=== PATIENT | male | born 1950 | race Caucasian/White ===

== ENCOUNTER → 2021-01-11 | Outpatient (CLI) | payer OTHER | LOC: SJCVC 10:44 | PROVIDERS: ATTEND Internal Medicine | DX: R94.31 Abnormal electrocardiogram [ECG] [EKG] (principal); R00.0 Tachycardia, unspecified; R06.00 Dyspnea, unspecified; E78.00 Pure hypercholesterolemia, unspecified; E78.5 Hyperlipidemia, unspecified; Z87.891 Personal history of nicotine dependence; Z86.19 Personal history of other infectious and parasitic diseases; Z82.49 Family history of ischemic heart disease and other diseases of the circulatory system; Z72.89 Other problems related to lifestyle; Z79.899 Other long term (current) drug therapy ==

== ENCOUNTER → 2021-01-13 | Outpatient (CLI) | payer OTHER | LOC: SJCVCIMAG 09:49 | PROVIDERS: ATTEND Internal Medicine | DX: I35.1 Nonrheumatic aortic (valve) insufficiency (principal); R00.0 Tachycardia, unspecified; A48.1 Legionnaires' disease; R06.00 Dyspnea, unspecified; E78.5 Hyperlipidemia, unspecified; I10 Essential (primary) hypertension; Z87.891 Personal history of nicotine dependence ==

== ENCOUNTER → 2021-01-14 | Outpatient (CLI) | payer OTHER | LOC: LAB 09:48 | PROVIDERS: ATTEND Internal Medicine | DX: Z01.812 Encounter for preprocedural laboratory examination (principal); Z20.822 Contact with and (suspected) exposure to COVID-19 ==

== ENCOUNTER → 2021-01-24 | Outpatient (CLI) | payer OTHER ==
[~2021-01-24] VITALS: Ht 170.2 cm; Wt 88.9 kg
[~2021-01-24] MED LIST: CENTRUM CHEWAB1 EAC2 PO; FLOMAX0.4 MG PO; ROSUVASTATIN CA20 MG PO; ZETIA10 MG PO
[2021-01-24 07:44] VITALS: BP 140/69
--- NOTE | 2021-01-24 09:33 | CATHLAB ---
[facility] [place] [address] INVASIVE PROCEDURE REPORT Name: VERA JAY Room #: REG LILLIAM Malhotra#: [id number] Admission: 01/24/21 Attend Phys: Agustín Parham MD, Discharge: Date of : 54 Report #: [id number] THIS REPORT FOR: cc: Pablito Izquierdo MD, Neal A. MD Lundgren, Craig H. MD [facility] ~ APPROVED REPORT Study performed: 01/24/2021 07:52:16 Patient Details Patient Status: Out-Patient Room #: The patient is a 70 year-old male Event Personnel Agustín Parham Refractory Furnace Designer, Christiane Melvin RTR Monitor, Maeve Maher RN, , Rachael Guerra Scrub Procedures Performed Art Access - R femoral artery* Left Heart Cath w/or w/o Coronaries [id number] [facility] Hemostasis w/ Mynx 34659 Initial Mod Sed Same Phys/QHP Gr5y 306973 46015 Mod Sed Same Phys/QHP Ea 131557 Indication Positive stress test Procedure Narrative The Right Groin^ was infiltrated with 1% Lidocaine subcutaneous anesthesia. A PINNACLE 6FR Sheath #[id number] sheath was inserted into the RFA^. Coronary angiography was performed using coronary diagnostic catheters. The right coronary system was accessed and visualized with a JR4 catheter. The left coronary system was accessed and visualized with a JL4 catheter. The left ventricle was accessed and visualized with a ANGLED PIGTAIL catheter. Left ventriculogram was performed in 30 degree projection. Closure device was deployed with a Fr MYNXGRIP 6/7F #[id number]. The patient tolerated the procedure well and there were no complications associated with the procedure. There was no hematoma. Intraoperative Conscious Sedation Sedation start time: 8:13 Case end Time: 8:45 Fentanyl 50 mcg Versed 1 [facility] [place] [address] INVASIVE PROCEDURE REPORT Name: VERA JAY [id number] Admission: 01/24/21 Attend Phys: Agustín Parham, Discharge: Date of : 54 Report #: [id number] Fluoro Time: 1.60 minutes Dose: DAP 7151.50 cGycm2 861 mGy Contrast Type and Amount: Omnipaque 90 ml Diagnostic Cath Left Main Mild left main plaquing LAD Critical sequential 90% stenoses involving the proximal and mid portions of the LAD Diagonal 1 Mild ostial diagonal branch stenosis Circumflex Large nondominant circumflex comprised of a single marginal branch. 40-50% proximal circumflex stenosis OM1 Mild ostial OM1 plaquing Right Coronary Dominant right coronary occluded in its midportion with bridging right to right collateralization. Left to right collateralization to the distal right coronary RPLV Occluded posterior lateral branch with [id number]-dv-[id number] collateralization Ramus Thready diffusely diseased marginal branch stenosis Left Ventriculography The left ventricle is normal in size with normal contractility. The left ventricular ejection fraction is estimated to be 60-65%. Left ventricular wall motion abnormalities are not present. There is no mitral insufficiency. Hemodynamics The aortic pressure is 184/69 mmHg with a mean of 115 mmHg. The left ventricular pressure is 161/9 mmHg with a mean of mmHg. The left ventricular end diastolic pressure is 22 mmHg. Conclusion 1. Normal global and regional left ventricular systolic function. EF 60-65% 2. Mild left main plaquing 3. Severe multivessel coronary disease. Recommendations CABG <ELECTRONICALLY SIGNED> By: Agustín Parham MD, FACC 01/24/21931 1 1 Agustín Parham MD, FACC /INF
[2021-01-25 14:50] LABS: URINE BILIRUBIN NEGATIVE (Negative); URINE BLOOD NEGATIVE (Negative); URINE CLARITY CLEAR; URINE COLOR YELLOW; URINE GLUCOSE-RANDOM* NEGATIVE (Negative); URINE KETONES NEGATIVE (Negative); URINE LEUKOCYTES-REFLEX NEGATIVE (Negative); URINE NITRITE-REFLEX NEGATIVE (Negative); URINE PROTEIN (DIPSTICK) NEGATIVE (Negative); URINE UROBILINOGEN 0.2 E.U./dl (0.2-1.0)
== END | disposition home or self-care (01) ==
LOC: CATH 06:29
PROVIDERS: Surgery Vascular Surgery; ATTEND Internal Medicine
DX: R94.39 Abnormal result of other cardiovascular function study (principal); I25.10 Atherosclerotic heart disease of native coronary artery without angina pectoris; E78.5 Hyperlipidemia, unspecified; Z98.890 Other specified postprocedural states; Z79.899 Other long term (current) drug therapy; Z87.891 Personal history of nicotine dependence; Z98.52 Vasectomy status

== ENCOUNTER → 2021-01-25 | Outpatient (CLI) | payer OTHER | LOC: SJCVCIMAG 07:49 | PROVIDERS: ATTEND Internal Medicine | DX: Z01.810 Encounter for preprocedural cardiovascular examination (principal); I08.2 Rheumatic disorders of both aortic and tricuspid valves; I11.0 Hypertensive heart disease with heart failure; R06.00 Dyspnea, unspecified; I25.10 Atherosclerotic heart disease of native coronary artery without angina pectoris; I65.23 Occlusion and stenosis of bilateral carotid arteries ==

== ENCOUNTER → 2021-02-07 | Outpatient (CLI) | payer OTHER ==
[~2021-02-07] MED LIST changes: +COQ-10100 MG PO; +FERREX 150 PLU1 EAC1 PO; +ISOSORBIDE DINI30 MG PO; +METOPROLOL SUCC50 MG PO; +PACERONE 200 M200 M1 PO; +TOPROL XL25 MG PO; +VITAMIN D325 MC3 PO
[2021-02-07 11:47] LABS: ABSOLUTE NEUTROPHILS 3.2 thou/uL (1.4-8.2); BASOPHILS 0.8 % (0.0-2.0); EOSINOPHILS 3.1 % (0.0-3.0); HEMATOCRIT 47.8 % (42.0-52.0); HEMOGLOBIN 16.1 gm/dL (14.0-18.0); LYMPHOCYTES 31.1 % (24.0-44.0); MCHC 33.6 g/dL (28.0-37.0); MCV 89.3 fL (80.0-100.0); MONOCYTES 8.6 % (1.0-8.0); PLATELET COUNT 269 thou/uL (150-400); POLYS 56.4 % (36.0-66.0); RBC 5.35 mil/uL (4.50-6.00); RDW 13.6 % (10.5-14.5); WBC 5.8 thou/uL (4.0-11.0)
[2021-02-07 11:58] LABS: ALBUMIN 4.5 g/dL (3.4-5.0); CALCIUM 10.8 mg/dL (8.5-10.1); CREATININE 1.2 mg/dL (0.7-1.3); POTASSIUM 4.8 mmol/L (3.5-5.1); TOTAL BILIRUBIN 0.6 mg/dL (0.2-1.0); TOTAL PROTEIN 7.6 g/dL (6.4-8.2)
[2021-02-07 12:07] LABS: APTT 25.6 Seconds (24.5-32.8); INR 0.94; PROTIME 10.3 Seconds (9.3-11.4)
[2021-02-07 23:06] LABS: GLYCOHEMOGLOBIN (HGB A1C) 5.6 % (4.8-5.6)
--- NOTE | 2021-02-08 06:58 | EKG ---
[address] [address] ELECTROCARDIOGRAM REPORT Name: MISTYVERA Belen Room #: [facility]#: [id number] Admission: Attend Phys: Eric Cooley MD Discharge: Date of : 54 Report #: [id number] [facility] Test Date: 2021-02-07 Test Time: 11:38:28 Pat Name: VERA JAY Department: Room: Gender: Pharmacologist: Clay GARCIA : 1950 Requested By: Eric Cooley Order Number: [id number] MD: Aaron Olivares Measurements Intervals [place] Rate: 56 P: 32 [place]: 188 QRS: -20 QRSD: 109 T: 20 QT: 401 QTc: 387 Interpretive Statements Sinus rhythm Borderline left axis deviation Compared to ECG 04/02/2008 22:08:02 No significant changes Electronically Signed On 02-08-2021 6:58:23 CDT by Aaron Olivares [email or web address] <ELECTRONICALLY SIGNED> By: Aaron Olivares MD, [facility] 02/08/21 0658 1138 1138 Aaron Olivares MD, FACC /EPI
--- NOTE | 2021-02-11 08:42 | HC ---
[facility] [place] [address] CONSULTATION Name: VERA JAY [id number] Admission: 02/07/21 Attend Phys: Eric Cooley MD Discharge: Date of : 54 Report #: [id number] THIS REPORT FOR: cc: Pablito Izquierdo MD, Neal A. MD Lundgren,Agustín Peña MD FACC ~ REASON FOR CONSULTATION: Shortness of breath, chest pain. HISTORY OF PRESENT ILLNESS: The patient is a 71-year-old patient of Dr. Pablito Izquierdo with a history of remote Legionnaires' disease. He has a history of dyslipidemia and recently identified multivessel coronary artery disease. He now presents for surgical revascularization. The patient reports a progressive history of exertional breathlessness, especially while walking his dog this past winter. He developed a midsternal chest tightness with exercise, usually after eating. No heart failure symptoms including orthopnea, paroxysmal nocturnal dyspnea, or lower extremity edema. No history of near syncope or syncope. ALLERGIES: No known drug allergies. MEDICATIONS: Isosorbide 30 mg daily, metoprolol succinate 25 mg daily, rosuvastatin 20 mg daily, Flomax 0.4 mg daily, Zetia 10 mg daily. PAST MEDICAL HISTORY: Medical records have been reviewed and include a history of remote Legionnaires' disease, BPH, dyslipidemia. SOCIAL HISTORY: He is a former smoker, quit in 2007. FAMILY HISTORY: Notable for father who had a heart attack in his 30s. REVIEW OF SYSTEMS: All systems negative except as that noted above. PHYSICAL EXAMINATION: GENERAL: This is a pleasant gentleman in no distress. VITAL SIGNS: Blood pressure is 116/70, heart rate of 90 and regular, respirations unlabored at 18. HEENT: There are neither xanthelasma, subcutaneous xanthomata, oral mucosal or digital cyanosis or kyphoscoliosis present. CHEST: Clear to auscultation and percussion. CARDIAC: Regular rate and rhythm with normal S1, S2. No murmurs, gallops or rubs. ABDOMEN: Soft and nontender. EXTREMITIES: Without cyanosis, clubbing or edema. Radial pulses are 2+. NEUROLOGIC: He is alert with a nonfocal exam. [facility] [address] [place] [address] CONSULTATION Name: VERA JAY Room #: [facility]#: [id number] Admission: 02/07/21 Attend Phys: Eric Cooley MD Discharge: Date of : 54 Report #: [id number] LABORATORY DATA: Creatinine 1.26. Echocardiogram, normal ejection fraction, mildly calcified trileaflet aortic valve with moderate aortic insufficiency. Carotid duplex, moderate plaquing in the right internal 60-70% left internal carotid artery stenosis. IMPRESSION: 1. Progressive exertional angina, unstable angina. 2. Normal left ventricular systolic function with multivessel coronary artery disease. 3. Dyslipidemia. 4. Former smoker. 5. History of Legionnaires' disease. RECOMMENDATIONS: 1. Surgical revascularization. 2. Continued efforts towards aggressive risk factor modification. 3. We will follow along in the perioperative setting. Thank you for asking me to participate in the patient's care. <ELECTRONICALLY SIGNED> By: Agustín Parham MD, [facility] 02/11/21 0842 1623 2038 Agustín Parham MD, FACC /nt
== END ==
LOC: LAB 07:43
PROVIDERS: ATTEND Surgery Vascular Surgery
DX: Z01.818 Encounter for other preprocedural examination (principal); Z20.822 Contact with and (suspected) exposure to COVID-19; I25.10 Atherosclerotic heart disease of native coronary artery without angina pectoris

== ENCOUNTER 2021-02-11 06:06 | Inpatient (IN) | payer OTHER ==
[2021-02-11] VITALS (18 sets, daily range): BP systolic 91–150; BP diastolic 54–71
[~2021-02-11] VITALS: Ht 170.2 cm; Wt 88.9 kg
[~2021-02-11 06:06] MED LIST changes: -FERREX 150 PLU1 EAC1 PO; -METOPROLOL SUCC50 MG PO; -PACERONE 200 M200 M1 PO
[2021-02-11 12:47] LABS: HEMATOCRIT 32.9 % (42.0-52.0); HEMOGLOBIN 11.4 gm/dL (14.0-18.0); MCH 30.7 pg (26.0-34.0); MCHC 34.8 g/dL (28.0-37.0); MCV 88.3 fL (80.0-100.0); RBC 3.72 mil/uL (4.50-6.00); RDW 13.2 % (10.5-14.5); WBC 12.2 thou/uL (4.0-11.0)
[2021-02-11 12:58] LABS: APTT 24.1 Seconds (24.5-32.8); PROTIME 14.6 Seconds (9.3-11.4)
[2021-02-11 13:02] LABS: INR 1.36
[2021-02-11 13:34] LABS: POC BE -1 mmol/L (-2.0 to +3.0); POC CA IONIZED 4.1 mg/dL (4.5-5.3); POC GLUCOSE 134 mg/dL (70-99); POC HCO3 23.8 mmol/L (22.0-26.0); POC HEMOGLOBIN 10.9 g/dL (14.0-18.0); POC POTASSIUM 5.3 mmol/L (3.5-5.1); POC SODIUM 136 mmol/L (136-145); POC pCO2 36.7 mmHg (35.0-45.0)
[2021-02-11 13:34] LABS: POC BE 0 mmol/L (-2.0 to +3.0); POC CA IONIZED 4.4 mg/dL (4.5-5.3); POC GLUCOSE 139 mg/dL (70-99); POC HCO3 24.3 mmol/L (22.0-26.0); POC HEMOGLOBIN 11.2 g/dL (14.0-18.0); POC POTASSIUM 4.4 mmol/L (3.5-5.1); POC SODIUM 140 mmol/L (136-145); POC pCO2 38.8 mmHg (35.0-45.0); POC pH 7.406 (7.360-7.450)
[2021-02-11 13:34] LABS: POC BE 3 mmol/L (-2.0 to +3.0); POC GLUCOSE 97 mg/dL (70-99); POC HCO3 27.2 mmol/L (22.0-26.0); POC HEMOGLOBIN 14.3 g/dL (14.0-18.0); POC POTASSIUM 4.4 mmol/L (3.5-5.1); POC SODIUM 141 mmol/L (136-145); POC pCO2 38.9 mmHg (35.0-45.0); POC pH 7.452 (7.360-7.450)
[2021-02-11 13:35] LABS: POC BE -1 mmol/L (-2.0 to +3.0); POC CA IONIZED 5.2 mg/dL (4.5-5.3); POC GLUCOSE 127 mg/dL (70-99); POC HCO3 24.1 mmol/L (22.0-26.0); POC HEMOGLOBIN 11.2 g/dL (14.0-18.0); POC POTASSIUM 4.1 mmol/L (3.5-5.1); POC SODIUM 141 mmol/L (136-145); POC pCO2 43.5 mmHg (35.0-45.0); POC pH 7.352 (7.360-7.450)
[2021-02-11 13:35] LABS: POC BE 0 mmol/L (-2.0 to +3.0); POC CA IONIZED 5.4 mg/dL (4.5-5.3); POC GLUCOSE 133 mg/dL (70-99); POC HCO3 25.1 mmol/L (22.0-26.0); POC HEMOGLOBIN 11.2 g/dL (14.0-18.0); POC POTASSIUM 4.1 mmol/L (3.5-5.1); POC SODIUM 141 mmol/L (136-145); POC pCO2 43.9 mmHg (35.0-45.0); POC pH 7.365 (7.360-7.450)
[2021-02-11 13:35] LABS: POC BE -2 mmol/L (-2.0 to +3.0); POC CA IONIZED 4.9 mg/dL (4.5-5.3); POC GLUCOSE 116 mg/dL (70-99); POC HCO3 23.6 mmol/L (22.0-26.0); POC HEMOGLOBIN 12.2 g/dL (14.0-18.0); POC POTASSIUM 4.4 mmol/L (3.5-5.1); POC SODIUM 142 mmol/L (136-145); POC pCO2 40.7 mmHg (35.0-45.0); POC pH 7.371 (7.360-7.450)
[2021-02-11 13:35] LABS: POC BE -1 mmol/L (-2.0 to +3.0); POC CA IONIZED 4.4 mg/dL (4.5-5.3); POC GLUCOSE 126 mg/dL (70-99); POC HCO3 24.9 mmol/L (22.0-26.0); POC HEMOGLOBIN 10.5 g/dL (14.0-18.0); POC POTASSIUM 4.6 mmol/L (3.5-5.1); POC SODIUM 139 mmol/L (136-145); POC pCO2 44.6 mmHg (35.0-45.0); POC pH 7.355 (7.360-7.450)
[2021-02-11 13:35] LABS: POC BE 2 mmol/L (-2.0 to +3.0); POC CA IONIZED 4.7 mg/dL (4.5-5.3); POC GLUCOSE 145 mg/dL (70-99); POC HCO3 26.6 mmol/L (22.0-26.0); POC HEMOGLOBIN 14.3 g/dL (14.0-18.0); POC POTASSIUM 4.9 mmol/L (3.5-5.1); POC SODIUM 139 mmol/L (136-145); POC pCO2 42.4 mmHg (35.0-45.0); POC pH 7.407 (7.360-7.450)
[2021-02-11 13:35] LABS: POC BE 0 mmol/L (-2.0 to +3.0); POC CA IONIZED 4.4 mg/dL (4.5-5.3); POC GLUCOSE 135 mg/dL (70-99); POC HCO3 24.5 mmol/L (22.0-26.0); POC HEMOGLOBIN 11.2 g/dL (14.0-18.0); POC POTASSIUM 4.2 mmol/L (3.5-5.1); POC SODIUM 142 mmol/L (136-145); POC pCO2 39.9 mmHg (35.0-45.0); POC pH 7.397 (7.360-7.450)
[2021-02-11 14:20] LABS: BE(vivo) -8.2 mmol/L (-2 to +3); HCO3 18.7 mmol/L (22.0-26.0); PCO2 43.3 mmHg (35.0-45.0); PO2 90.5 mmHg (80.0-100.0); pH 7.254 (7.360-7.450); sO2 95.7 % (92.0-98.0)
--- NOTE | 2021-02-11 14:30 | NUR ---
1400- PATIENT ARRIVED TO ICU FROM OR FOR ICU POST OP CABG RECOVERY.
[2021-02-11 14:35] LABS: HEMATOCRIT 40.7 % (42.0-52.0); MCH 30.4 pg (26.0-34.0); MCHC 34.3 g/dL (28.0-37.0); MCV 88.5 fL (80.0-100.0); RBC 4.6 mil/uL (4.50-6.00); RDW 13.4 % (10.5-14.5); WBC 18.2 thou/uL (4.0-11.0)
[2021-02-11 14:46] LABS: APTT 24.9 Seconds (24.5-32.8); INR 1.12; PROTIME 12.1 Seconds (9.3-11.4)
[2021-02-11 14:56] LABS: CALCIUM 8.2 mg/dL (8.5-10.1); MAGNESIUM 2.2 mg/dL (1.8-2.4); POTASSIUM 4.6 mmol/L (3.5-5.1)
--- NOTE | 2021-02-11 16:59 | EKG ---
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 : 1950 Requested By: Devin Lozano Order Number: [id number] MD: Agustín Parham Measurements Intervals [place] Rate: 88 P: 66 [place]: 181 QRS: -34 QRSD: 100 T: 34 QT: 355 QTc: 430 Interpretive Statements Sinus rhythm RSR' in V1 or V2, right VCD Inferior infarct, old Compared to ECG 02/07/2021 11:38:28 RSR' in V1 or V2 now present Electronically Signed On 02-11-2021 16:59:10 CDT by Agustín Parham [email or web address] <ELECTRONICALLY SIGNED> By: Agustín Parham MD, [facility] 02/11/21 1954 1439 1439 Agustín Parham MD, [facility] /EPI
--- NOTE | 2021-02-11 17:33 | NUR ---
Cpap trial a few times this afternoon, see vent documentation. Less than two minutes into each trial, patient gets anxious, aggitated, and restless, tachycardic with heart rate 100-110 bpm, and respiratory rate in mid to upper 30s. Nurse asked patient if he is in pain, he nods no. Nurse asks patient if he feels as if he can not breathe, he nods yes. Oyxgenation is >95% with assist control settings, with cpap trial his oxygenation drops to upper 80%. Nurse to relay this to Dr. Cooley upon his rounding.
--- NOTE | 2021-02-11 20:22 | NUR ---
Care assumed a 1915. Dr. Cooley here to see pt, informed of difficulties with CPAP trials (tachypnea, c/o SOA). Precedex ordered and started at 2000 at 0.6 mcg/kg/hr. Will titrate as needed. Albumin 5% given for CVP 8-9, all other hemodynamics within parameters. Urine output 30 cc/hr.
--- NOTE | 2021-02-11 20:52 | NUR ---
CPAP trial start at 2039 with FiO2 45%, PS 6, peep. Precedex at 0.8 mcg/kg/hr Pt doing well, sat 100%, respiratory rate 18-20, Tv 550-600, Mv 11.4
[2021-02-11 21:36] LABS: BE(vivo) -6.8 mmol/L (-2 to +3); HCO3 17.5 mmol/L (22.0-26.0); PCO2 31.5 mmHg (35.0-45.0); pH 7.362 (7.360-7.450); sO2 96.4 % (92.0-98.0)
--- NOTE | 2021-02-11 22:08 | NUR ---
EXTUBATED at 2205. Precedex off at 2130. Pt O2 sat 100% on 35% humidified face shield. Second bottle of albumin hung fo CVP 5 and PAD 12
[2021-02-12] VITALS (23 sets, daily range): BP systolic 99–148; BP diastolic 64–77
--- NOTE | 2021-02-12 03:43 | NUR ---
CARDENE gtt started at 2.5 mg/hr for SBP >150. Pt tolerating well. Hemodynamics remain stable, Urine output > 30 cc/hr, Mediastinal and plural tube drainage within parameters.
[2021-02-12 04:59] LABS: HEMATOCRIT 37.5 % (42.0-52.0); HEMOGLOBIN 12.4 gm/dL (14.0-18.0); MCH 29.4 pg (26.0-34.0); MCHC 33.1 g/dL (28.0-37.0); MCV 88.9 fL (80.0-100.0); RBC 4.22 mil/uL (4.50-6.00); RDW 13.9 % (10.5-14.5); WBC 11.1 thou/uL (4.0-11.0)
[2021-02-12 05:12] LABS: CREATININE 1.2 mg/dL (0.7-1.3); POTASSIUM 3.9 mmol/L (3.5-5.1)
--- NOTE | 2021-02-12 06:29 | NUR ---
Pt progressing toward goals. Taking clear liquids without nausea. O2 sat 97% on 3 L canula; Mediastinal and left plural chest tubes patent, no air leak or crepitus. 260 cc sero-sanguinous drainage from mediastinal tubes, 68 cc drainange from left plural tube. Hemodynamics have remained stable within parameters except SBP slightly high. Cardene gtt at 2.5 mg/hr keeping SBP <150. Pain well controlled with Fentanyl q 2-3 hours IVP. Urine output adequate, 670 cc per this shift. Plan to get pt up to chair when day shift nurse arrives.
[2021-02-12 12:26] LABS: CALCIUM 7.9 mg/dL (8.5-10.1)
[2021-02-12 12:27] LABS: MAGNESIUM 2.1 mg/dL (1.8-2.4)
[2021-02-13] VITALS (12 sets, daily range): BP systolic 98–163; BP diastolic 57–72
[2021-02-13 04:37] LABS: HEMATOCRIT 36.9 % (42.0-52.0); HEMOGLOBIN 12.3 gm/dL (14.0-18.0); MCH 29.4 pg (26.0-34.0); MCHC 33.3 g/dL (28.0-37.0); MCV 88.5 fL (80.0-100.0); RBC 4.17 mil/uL (4.50-6.00); RDW 13.9 % (10.5-14.5); WBC 13.6 thou/uL (4.0-11.0)
[2021-02-13 05:18] LABS: CALCIUM 8.2 mg/dL (8.5-10.1); POTASSIUM 4.2 mmol/L (3.5-5.1)
--- NOTE | 2021-02-13 05:18 | NUR ---
Pt has chosen to sleep in chair all night. Monitor has remained sinus tach with rate 105-114. Breath sounds remain clear, cough non-productive. No c/o of nausea. Urine output 1000 cc for this shift. Left plural chest tube remains patent to -20 cmH2O, no air leak or crepitus. Only 25 cc sero-sanguinous drainage from tube. Right a-line somewhat positional but generally correlates within 10 mmHg of BP cuff. Pt remains on 1 L O2 while sleeping to keep sat > 92%. Sternal and left leg dressings remain clean, dry and intact.
--- NOTE | 2021-02-13 10:24 | NUR ---
ASSUMED CARE AT 0700, ASSESSMENT AND VITAL SIGNS COMPLETED PER ICU PROTOCOL. PT'S , CLIFF, IS BEDSIDE WITH PT. DR. GARCÍA ROUNDED THIS AM, PLAN OF CARE DISCUSSED.
--- NOTE | 2021-02-13 16:25 | O ---
[facility] [place] [address] OPERATIVE REPORT Name: VERA JAY Room #: 214-P ADM IN M.R.#: [id number] Admission: 02/11/21 Attend Phys: Eric Cooley MD Discharge: Date of : 54 Report #: [id number] THIS REPORT FOR: cc: Pablito Izquierdo MD, Neal A. MD Forman,Eric Elizondo MD ~ DATE OF SERVICE: 02/11/2021 PREOPERATIVE DIAGNOSIS: Coronary artery disease. POSTOPERATIVE DIAGNOSIS: Coronary artery disease. OPERATION: Coronary artery bypass x 4 including left internal mammary artery to left anterior descending artery, saphenous vein to diagonal and marginal and saphenous vein to posterior descending artery and endoscopic harvest, left greater saphenous vein. SURGEON: Eric Cooley MD ABSTRACT CLERK: KATE Cevallos. ANESTHESIA: General. INDICATIONS: The patient is a 71-year-old seen for Dr. Parham. The patient has important 3-vessel coronary artery disease. He also has mild aortic incompetence. Left ventricular function is satisfactory. FINDINGS AND TECHNIQUE: After general anesthesia was established, saphenous vein was harvested and prepared for use as a conduit. Exposure was obtained through median sternotomy. Left internal mammary artery was harvested from chest wall. Pericardial well was made. Cannulation sutures were placed. Heparin was given. Aorta was cannulated. Right atrium was cannulated. Cardioplegia needle was positioned in the aortic root. Retrograde cardioplegic catheter was placed in the coronary sinus. Cardiopulmonary bypass was established. Aorta was cross clamped. Antegrade and retrograde cardioplegia were given. Ice was poured in the pericardial well. The heart was stopped. During electromechanical arrest, the distal anastomoses were performed and end-to-side anastomosis was made between vein and the posterior descending artery. Cold cardioplegia was given. Separate segment of vein was sewn in end-to-side fashion to the large marginal. Cold cardioplegia was given. The same piece of vein was sewn in vrxu-tk-busi fashion to the diagonal artery. Cold cardioplegia was given. Left internal mammary artery was sewn in [facility] [address] [place] [address] OPERATIVE REPORT Name: VERA JAY Room #: 214-P [facility] IN M.R.#: [id number] Admission: 02/11/21 Attend Phys: Eric Cooley MD Discharge: Date of : 54 Report #: [id number] end-to-side fashion to left anterior descending artery. Patency of this vessel was checked with the temperature technique. Cold cardioplegia was given. Two proximal anastomoses were performed. When these were complete, warm retrograde cardioplegia was given followed by warm continuous blood to the coronary sinus. When this infusion was complete, the crossclamp was removed, de-airing maneuvers were performed. The anastomoses were inspected and found to be satisfactory. As the heart warmed chest tubes were placed through separate stab wound and pacing wire was placed and a marker was placed around the proximal anastomosis. When the patient was warm, he was weaned from cardiopulmonary bypass. Venous cannula was removed. Protamine was given, the aortic cannula was removed. Flows were measured in the bypass grafts. When hemostasis was satisfactory, chest was irrigated with antibiotic solution and closed in the usual fashion. The patient was taken to the Intensive Care Unit in good condition having tolerated the procedure well. All counts reported as correct. <ELECTRONICALLY SIGNED> By: Eric Cooley MD 02/13/21 1625 1510 1545 Eric Cooley MD /nt
--- NOTE | 2021-02-13 16:29 | NUR ---
PATIENT ADMITTED TO UNIT FROM ICU. CHEST IN PLACE AND NO LEAKAGE NOTED. DR GARCÍA HERE A TTHIS TIME AND TUBE TAKEN OUT. NO COMPLICATIONS NOTED. GIORDANO ALSO TAKEN OUT. PATIENT DENIES PAIN AT THIS TIME. WILL CONT WITH PLAN OF CARE.
[2021-02-14 04:30] VITALS: BP 111/63
[2021-02-14 08:00] VITALS: BP 126/72
--- NOTE | 2021-02-14 08:19 | NUR ---
ASSUMED PT CARE AT 0700. PT IN BED, PT C/O NAUSEA. PT DENIES PAIN. PT GIVEN SOME SALTINES TO TAKE HIS MORNING BEDS WITH. PT STATES ALL HE HAS BEEN DOING IS DRINKING HIS SHAKES, NOTHING SOLID. PTS VSS. WILL CONTINUE TO MONITOR AND FOLLOW POC.
--- NOTE | 2021-02-14 09:20 | EKG ---
[address] [place] [address] ELECTROCARDIOGRAM REPORT Name: VERA JAY Room #: 214-P ADM IN M.R.#: [id number] Admission: 02/11/21 Attend Phys: Eric Cooley MD Discharge: Date of : 54 Report #: [id number] 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: DALE : 1950 Requested By: Devin Lozano Order Number: [id number] MD: Agustín Parham Measurements Intervals [place] Rate: 104 P: 37 [place]: 146 QRS: -31 QRSD: 90 T: 7 QT: 317 QTc: 417 Interpretive Statements Sinus tachycardia RSR' in V1 or V2, right VCD Inferior infarct, old Borderline ST elevation, anterior leads Compared to ECG 02/11/2021 14:39:16 No significant change was found Electronically Signed On 02-14-2021 9:20:15 CDT by Agustín Parham [email or web address] <ELECTRONICALLY SIGNED> By: Agustín Parham MD, [facility] 02/14/21 0920 0755 0755 Agustín Parham MD, [facility] /EPI
--- NOTE | 2021-02-14 11:40 | NUR ---
Nutrition: Pt S/P CABG x 4. Just transferred to CCU from ICU last night. RD will followup at appropriate time prior to D/C to address education needs.
--- NOTE | 2021-02-14 11:59 | NUR ---
PT SITTING UP IN CHAIR TALKING TO FAMILY. PT STATES HE IS FEELING BETTER SITTING UP. WILL CONTINUE TO MONITOR AND FOLLOW POC.
[2021-02-14 12:01] VITALS: BP 120/55
--- NOTE | 2021-02-14 14:44 | NUR ---
met with patient. He admits with CAD s/p CABG. Patient reports he lives with all needs on one level. Patient independent with adls and self care. Patient retired. No hx of HH/DME. PCP Dr Izquierdo. Patient currently on oxygen. Anticipate dc home no needs and begin outpatient therapy. [facility] following.
--- NOTE | 2021-02-14 16:16 | NUR ---
PT SITTING IN CHAIR, ASSESSMENT UNCHANGED. PT HAS WALKED SEVERAL TIMES WITH PT/OT/CARDIAC REHAB. PTS VSS. WILL CONTINUE TO MONITOR AND FOLLOW POC.
[2021-02-14 19:44] VITALS: BP 116/76
[2021-02-15 05:05] VITALS: BP 99/44
[2021-02-15 05:06] LABS: HEMATOCRIT 32.8 % (42.0-52.0); HEMOGLOBIN 11.3 gm/dL (14.0-18.0); MCH 30.7 pg (26.0-34.0); MCHC 34.4 g/dL (28.0-37.0); MCV 89.3 fL (80.0-100.0); RBC 3.68 mil/uL (4.50-6.00); RDW 13.8 % (10.5-14.5); WBC 10.4 thou/uL (4.0-11.0)
--- NOTE | 2021-02-15 05:16 | NUR ---
SLEPT UP IN CHAIR ALL NOC. STATES IT IS THE MOST COMFORTABLE. UP TO COMODE WITH ONE ASSIST PASSING GAS. DENIES COMPLAINTS OF PAIN OR NEED FOR PAIN MEDICATION. WORKING ON GOALS AND PLAN OF CARE FOR NOC. PROGRESSING SLOWLY TOWARDS DISCHARGE GOALS. CONTINUE TO ASSES CLOSELY. ENCOURAGE IS WHILE AWAKE.
[2021-02-15 05:21] LABS: CALCIUM 8.5 mg/dL (8.5-10.1); CREATININE 1.1 mg/dL (0.7-1.3)
[2021-02-15 08:00] VITALS: BP 91/52
--- NOTE | 2021-02-15 12:33 | NUR ---
PATIENT ALERT/ORIENTED X4. VSS. WORKED WITH PT/OT THIS MORNING. SITTING UP IN CHAIR FOR MEALS. VOICES NO NEEDS OR CONCERNS AT THIS TIME. FAMILY AT BEDSIDE. TITRATED OXYGEN DOWN TO 1L PER RESPIRATORY. BECOMES INCREASE SHORT OF BREATH WITH ACTIVITY BUT RECOVERS WITH REST. ENCOURAGED TO UTILIZED IS.
[2021-02-15 12:37] VITALS: BP 98/47
[2021-02-15 16:00] VITALS: BP 89/60
[2021-02-15 17:35] VITALS: BP 106/62
[2021-02-15 20:14] VITALS: BP 106/57
[2021-02-16 04:25] VITALS: BP 100/54
[2021-02-16 05:49] LABS: HEMATOCRIT 32.1 % (42.0-52.0); HEMOGLOBIN 10.7 gm/dL (14.0-18.0); MCH 30.3 pg (26.0-34.0); MCHC 33.3 g/dL (28.0-37.0); MCV 90.8 fL (80.0-100.0); RBC 3.53 mil/uL (4.50-6.00); RDW 13.8 % (10.5-14.5)
[2021-02-16 05:59] LABS: CALCIUM 8.9 mg/dL (8.5-10.1); CREATININE 1.2 mg/dL (0.7-1.3)
[2021-02-16 06:26] LABS: POTASSIUM 5.2 mmol/L (3.5-5.1)
--- NOTE | 2021-02-16 07:45 | NUR ---
SLEPT MOST OF SHIFT UP IN CHAIR. DENIES COMPLAINTS THIS AM. TOLERATING ACTIVITY UP TO BATHROOM WITH SBA ON 2L. WORKING ON GOALS AND PLAN OF CARE FOR NOC. PROGRESSING SLOWLY TOWARDS DISCHARGE GOALS. CONTINUE TO ASSES CLOSELY.
[2021-02-16 07:49] VITALS: BP 120/58
[2021-02-16 13:13] VITALS: BP 110/67
--- NOTE | 2021-02-16 17:41 | EKG ---
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: FSCHWALTHIAGO : 1950 Requested By: Devin Lozano Order Number: [id number] MD: Agustín Parham Measurements Intervals [place] Rate: 90 P: 66 [place]: 171 QRS: -6 QRSD: 90 T: 4 QT: 346 QTc: 424 Interpretive Statements Sinus rhythm Inferior infarct, old Compared to ECG 02/12/2021 07:55:28 Sinus tachycardia no longer present Electronically Signed On 02-16-2021 17:41:17 CDT by Agustín Parham [email or web address] <ELECTRONICALLY SIGNED> By: Agustín Parham MD, [facility] 02/16/211740 56 56 Agustín Parham MD, [facility] /EPI
--- NOTE | 2021-02-16 18:11 | NUR ---
PATIENT TRANSFERRED FROM ICU TO CCU. PLACED ON MONTIOR. ALERT/ORIENTED X4. PATIENT UP AD PRISCILLA IN ROOM. VOICES NO NEEDS OR CONCERNS.
[2021-02-16 20:07] VITALS: BP 108/52
[2021-02-17 04:58] VITALS: BP 104/60
[2021-02-17 07:26] VITALS: BP 107/72
[2021-02-17] MEDS ORDERED: PACERONE 200 M200 M1 PO (08:42)
[2021-02-17 11:32] VITALS: BP 98/60
[2021-02-17] MEDS ORDERED: FERREX 150 PLU1 EAC1 PO (13:56)
[2021-02-17] MEDS ORDERED: METOPROLOL SUCC50 MG PO (13:57)
[2021-02-17 14:10] VITALS: BP 98/60
--- NOTE | 2021-02-17 14:25 | NUR ---
ASSUMED CARE SHIFT CHANGE. ASSESSMENTS CHARTED.MEDS GIVEN PER MAR. VSS DENIES PAIN, NO SOB. UP WALKING TOLERATING WELL. O2 SATS WNL ON ROOM AIR. DRESSING CDI, ERNA CONNECTION INTACT. SPOUSE AT BEDSIDE. DISCUSSED DC WITH PT. COMMUNICATING UNDERSTANDING. IV REMOVED .TELE REMOVED. PT LEFT UNIT WITH ALL BELONGINGS.
== END 2021-02-17 14:32 | disposition home or self-care (01) | DRG 235 ==
LOC: 2N 06:06 → TBA 06:06 → PRE 09:03 → ICU 14:24 → 2N 02-13 13:30
PROVIDERS: Physician Assistant; ADMIT Surgery Vascular Surgery; ATTEND Surgery Vascular Surgery
DX: I25.110 Atherosclerotic heart disease of native coronary artery with unstable angina pectoris (principal); A48.1 Legionnaires' disease; E11.9 Type 2 diabetes mellitus without complications; E78.5 Hyperlipidemia, unspecified; Z87.891 Personal history of nicotine dependence; Z79.899 Other long term (current) drug therapy
CPT/HCPCS: 10081; 10204; 10797; 47297; 48889; 50010; 50249; 50668; 51301; 52131; 52259; 52287; 53327; 53358; 54118; 56455; 56524; 56525; 56526; 56527; 56528; 56531; 56534; 56668; 56719; 56760; 56898; 57093; 57116; 57167; 62110; 65003; 65020; 65090; 65120; 65135; 83006

== ENCOUNTER → 2021-03-21 | Outpatient (CLI) | payer OTHER ==
[~2021-03-21] MED LIST changes: +FERREX 150 PLU1 EAC1 PO; +METOPROLOL SUCC50 MG PO; +PACERONE 200 M200 M1 PO
== END ==
LOC: SJCVC 14:06
PROVIDERS: ATTEND Internal Medicine
DX: R94.31 Abnormal electrocardiogram [ECG] [EKG] (principal); I11.9 Hypertensive heart disease without heart failure; I25.10 Atherosclerotic heart disease of native coronary artery without angina pectoris; E78.5 Hyperlipidemia, unspecified; Z82.49 Family history of ischemic heart disease and other diseases of the circulatory system; Z87.891 Personal history of nicotine dependence; Z86.19 Personal history of other infectious and parasitic diseases; Z72.89 Other problems related to lifestyle; Z79.82 Long term (current) use of aspirin; Z79.899 Other long term (current) drug therapy

== ENCOUNTER → 2021-06-28 | Outpatient (CLI) | payer OTHER | LOC: SJCVC 10:20 | PROVIDERS: ATTEND Internal Medicine | DX: R00.1 Bradycardia, unspecified (principal); I25.10 Atherosclerotic heart disease of native coronary artery without angina pectoris; E78.5 Hyperlipidemia, unspecified; I65.23 Occlusion and stenosis of bilateral carotid arteries; R06.09 Other forms of dyspnea; Z82.49 Family history of ischemic heart disease and other diseases of the circulatory system; Z87.891 Personal history of nicotine dependence; Z86.19 Personal history of other infectious and parasitic diseases; Z72.89 Other problems related to lifestyle; Z79.82 Long term (current) use of aspirin; Z79.899 Other long term (current) drug therapy ==